=== PATIENT | female | born 1930 | race Caucasian/White ===

== ENCOUNTER 2018-11-09 10:40 | Emergency (ER) | payer MEDICARE ==
[2018-11-09 11:10] VITALS: BP 124/68
--- NOTE | 2018-11-09 11:27 | UC ---
General HPI - HPI Summary HPI Summary: 1 month ago, pt tripped on her husbands shop vac injuring her R hand. she tripped a second time 2 weeks later. she has ongoing burning in her R palm, pain to her 3/4th fingers and the 5th finger sticks out more sideways. - History of Current Complaint Chief Complaint: UCUpperExtremity Stated Complaint: SP FALL-RT HAND PAIN Time Seen by Provider: 11/09/18 11:21 Hx Obtained From: Patient Pain Intensity: 6 - Allergy/Home Medications Allergies/Adverse Reactions: Allergies Allergy/AdvReac Type Severity Reaction Status Date / Time iodine Allergy Intermediate Itching Verified 11/09/18 10:54 MS Iodine [Iodine] Allergy Intermediate Itching Verified 10/10/12 17:06 Home Medications: Home Medications Insulin Glargine,Hum.rec.anlog [Basaglar Kwrobertapen] 16 unit SC BEDTIME 11/09/18 [ History Confirmed 11/09/18] Levothyroxine TAB* [Synthroid TAB*] 75 mcg PO DAILY 11/09/18 [History Confirmed 11/09/18] Losartan TAB* [Cozaar TAB*] 25 mg PO DAILY 11/09/18 [History Confirmed 11/09/18] PMH/Surg Hx/FS Hx/Imm Hx Endocrine History: Diabetes, Thyroid Disease Cardiovascular History: Hypertension - Surgical History Surgical History: Yes Surgery Procedure, Year, and Place: Bilateral TKA--1992, 2009. CARPAL TUNNEL RELEASED LEFT HAND--2012 - Family History Known Family History: Positive: Non-Contributory - Social History Lives: With Family Alcohol Use: Rare Substance Use Type: None Smoking Status (MU): Never Smoked Tobacco - Immunization History Most Recent Tetanus Shot: 2011 Review of Systems All Other Systems Reviewed And Are Negative: No Constitutional: Negative: Fever Skin: Negative: Rash Musculoskeletal: Negative: Decreased ROM, Edema Neurological: Positive: Paresthesia - R palm Physical Exam Triage Information Reviewed: Yes Appearance: Well-Appearing Vital Signs: Initial Vital Signs Temp 99.9 F 11/09/18 11:04 Pulse 69 11/09/18 11:04 Resp 20 11/09/18 11:04 BP 124/68 11/09/18 11:04 Pulse Ox 99 11/09/18 11:04 Vital Signs Reviewed: Yes Respiratory: Positive: No respiratory distress Cardiovascular: Positive: RRR Musculoskeletal: Positive: Other: - RUE: shoulder and elbow non tender. Volar wrist with chronic bony deformity. tapping over the volar wrist worsens the seo and gives prickly sensation into her palm. Hand: 5th digit has mild spreading compared to over side. no bony instability or tenderness but pt c/o pain with active rom. hand does have gross s/v/m function. Neurological: Positive: Alert Psychological: Positive: Age Appropriate Behavior Skin Exam: Normal Diagnostics - Radiology No standard instances Radiology Interpretation Completed By: Radiologist - R HAND=IMPRESSION: #. Negative for fracture. #. Advanced osteoarthritis. Course/Dx - Course Course Of Treatment: This PA gill taped 4/5th fingers after cotton placed between the digits. - Differential Dx - Multi-Symptom Differential Diagnoses: Other - 5th digit not dislocated or fx thus I think sprain and will gill tape the 4/5th digits. exam also c/w carpal tunnel. will splint wrist and refer to hand - orthopedist. NO FX'S ON HAND. - Diagnoses Provider Diagnosis: Carpal tunnel syndrome of right wrist, Sprain of finger of right hand, Osteoarthritis Discharge - Sign-Out/Discharge Documenting (check all that apply): Patient Departure All imaging exams completed and their final reports reviewed: Yes - Discharge Plan Condition: Stable Disposition: HOME Patient Education Materials: Finger Sprain (ED), Osteoarthritis (ED) Referrals: Mary Hammond MD [Medical Doctor] - As Soon As Possible Additional Instructions: GILL TAPE AND WRIST SPLINT DURING DAY. MAY REMOVE AT BEDTIME DUE TO YOUR ARTHRITIS. - Billing Disposition and Condition Condition: STABLE Disposition: Home
== END 2018-11-09 12:03 | disposition home or self-care (01) ==
LOC: UCCORT 10:40
DX: G56.01 Carpal tunnel syndrome, right upper limb (principal); S63.616A Unspecified sprain of right little finger, initial encounter; W22.8XXA Striking against or struck by other objects, initial encounter; Y93.9 Activity, unspecified; Y92.009 Unspecified place in unspecified non-institutional (private) residence as the place of occurrence of the external cause; M19.041 Primary osteoarthritis, right hand; E11.9 Type 2 diabetes mellitus without complications; Z79.4 Long term (current) use of insulin; E07.9 Disorder of thyroid, unspecified; I10 Essential (primary) hypertension
CPT/HCPCS: 99212; G0463